=== PATIENT | male | born 1995 | race Caucasian/White ===

== ENCOUNTER 2016-07-20 09:30 | Emergency (ER) | payer MEDICAID ==
[2016-07-20] MEDS ORDERED: NS 1,000 ML IV ONE ×2 (10:08→10:25)
[2016-07-20] MEDS ORDERED: PROMETHAZINE HCL 25 MG/ML INJ IVP ONE (10:25)
--- NOTE | 2016-07-20 10:32 | EDPHY ---
H & P Time Seen by Provider: 07/20/16 10:04 HPI/ROS: CHIEF COMPLAINT: Nausea vomiting HISTORY OF PRESENT ILLNESS: Patient is a [id number] male who has recurrent episodes of nausea and vomiting. These occur every 6-9 months. He has had significant episodes of vomiting the past that caused a pneumothorax. Patient' s symptoms started 24 hours ago. He has had numerous episodes of nonbloody emesis. He has mild diffuse abdominal discomfort. He also reports nonbloody diarrhea. No fevers or chills. No recent travel or antibiotic use. REVIEW OF SYSTEMS: My complete review of systems is negative except as mentioned in the HPI. Past Medical/Surgical History: Recurrent abdominal pain Past surgical history: Negative Social history: The patient denies drug use. No alcohol use. Smoking Status: Current every day smoker Physical Exam: Vitals noted GENERAL: No acute distress, alert. HEENT: Eyes normal to inspection, normal pharynx, no signs of dehydration. NECK: No thyromegaly, no lymphadenopathy, supple. RESPIRATORY: Clear to auscultation bilaterally, no rales, rhonchi or wheezing. CVS: Regular rate and rhythm, no rubs, murmurs, or gallops. ABDOMEN: Soft, nontender, nondistended, no organomegaly. Benign BACK: Normal to inspection, no CVA tenderness. SKIN: Normal color, no rash, warm, dry. Mildly pale. EXTREMITIES: No pedal edema, no calf tenderness, no Homans sign or cords, no joint swelling. NEURO/PSYCH: Alert and oriented, normal mood and affect Constitutional: Initial Vital Signs Temperature (C) 36.5 C 07/20/16 09:31 Heart Rate 88 07/20/16 09:31 Respiratory Rate 18 07/20/16 09:31 Blood Pressure 144/95 H 07/20/16 09:31 O2 Sat (%) 98 07/20/16 09:31 O2 Delivery Mode Room Air Allergies/Adverse Reactions: No Known Allergies Allergy (Unverified 07/20/16 09:31) Home Medications: Medication Instructions Recorded Adderall 10 MG (*) 07/20/16 Gabapentin 07/20/16 Lexapro 07/20/16 Ondansetron Odt [Zofran Odt 4 mg 4 mg PO Q4PRN PRN #7 tab 07/20/16 (*)] Medical Decision Making ED Course/Re-evaluation: The an IV was placed. The patient was given normal saline 1 L IV for hydration. Patient was given Phenergan 12.5 mg IV. Laboratory studies were sent. I discussed the plan with the patient. I answered all his questions. I reviewed the patient's laboratory studies. [place] [id number]. The patient has been vomiting for the past 24 hours. On recheck the patient still had mild abdominal cramping and nausea. He was given Haldol 5 mg IV. I rechecked the patient on numerous occasions while here. 12 10: On recheck the patient was feeling better. He is resting comfortably in the bed. Abdomen was soft, nontender nondistended. I gave patient warnings prior to leaving. He was given follow-up information with forepart laster. He will return with worsening symptoms. He is given a prescription of Zofran upon discharge. Differential Diagnosis: My differential includes but is not limited to electrolyte abnormality, sugar abnormality, dehydration, viral illness, small-bowel obstruction, perforation, pancreatitis, cholecystitis, appendicitis - Data Points Laboratory Results: Laboratory Results 07/20/16 10:00 07/20/16 10:00 07/20/16 07/20/16 10:00 10:00 WBC 15.78 10^3/uL H 10^3/uL (3.80-9.50) RBC 5.54 10^6/uL 10^6/uL (4.40-6.38) Hgb 16.3 g/dL g/dL (13.7-17.5) Hct 48.0 % % (40.0-51.0) MCV 86.6 fL fL (81.5-99.8) MCH 29.4 pg pg (27.9-34.1) MCHC 34.0 g/dL g/dL (32.4-36.7) RDW 13.4 % % (11.5-15.2) Plt Count 356 10^3/uL 10^3/uL (150-400) MPV 9.0 fL fL (8.7-11.7) Neut % (Auto) 91.5 % H % (39.3-74.2) Lymph % (Auto) 6.0 % L % (15.0-45.0) Ware % (Auto) 2.0 % L % (4.5-13.0) Eos % (Auto) 0.0 % L % (0.6-7.6) Baso % (Auto) 0.1 % L % (0.3-1.7) Nucleat RBC Rel Count 0.0 % % (0.0-0.2) Absolute Neuts (auto) 14.45 10^3/uL H 10^3/uL (1.70-6.50) Absolute Lymphs (auto) 0.94 10^3/uL L 10^3/uL (1.00-3.00) Absolute Monos (auto) 0.32 10^3/uL 10^3/uL (0.30-0.80) Absolute Eos (auto) 0.00 10^3/uL L 10^3/uL (0.03-0.40) Absolute Basos (auto) 0.01 10^3/uL L 10^3/uL (0.02-0.10) Absolute Nucleated RBC 0.00 10^3/uL 10^3/uL (0-0.01) Immature Gran % 0.4 % % (0.0-1.1) Immature Gran # 0.06 10^3/uL 10^3/uL (0.00-0.10) Sodium 144 mEq/L mEq/L (134-144) Potassium 4.2 mEq/L mEq/L (3.5-5.2) Chloride 99 mEq/L mEq/L (97-110) Carbon Dioxide 23 mEq/l mEq/l (22-31) Anion Gap 22 mEq/L H mEq/L (8-16) BUN 18 mg/dL mg/dL (7-23) Creatinine 0.8 mg/dL mg/dL (0.7-1.3) Estimated GFR > 60 Glucose 122 mg/dL H mg/dL (70-100) Calcium 10.6 mg/dL H mg/dL (8.5-10.4) Total Bilirubin 1.0 mg/dL mg/dL (0.1-1.4) Conjugated Bilirubin 0.5 mg/dL mg/dL (0.0-0.5) Unconjugated Bilirubin 0.5 mg/dL mg/dL (0.0-1.1) AST 45 IU/L IU/L (17-59) ALT 42 IU/L IU/L (21-72) Alkaline Phosphatase 80 IU/L IU/L (38-126) Total Protein 8.9 g/dL H g/dL (6.3-8.2) Albumin 5.6 g/dL H g/dL (3.5-5.0) Lipase 34.0 IU/L IU/L (23-300) Medications Given: Discontinued Medications Haloperidol Lactate (Haldol Injection) 5 mg IVP EDNOW ONE Stop: 07/20/16 11:12 Last Admin: 07/20/16 11:17 Dose: 5 mg Sodium Chloride (Ns) 1,000 mls @ 0 mls/hr IV ONCE ONE PRN Reason: Wide Open Stop: 07/20/16 10:09 Last Admin: 07/20/16 10:09 Dose: 1,000 mls Sodium Chloride (Ns) 1,000 mls @ 0 mls/hr IV ONCE ONE; Wide Open PRN Reason: Protocol Stop: 07/20/16 10:26 Last Admin: 07/20/16 10:49 Dose: 1,000 mls Promethazine HCl (Phenergan) 12.5 mg IVP EDNOW ONE Stop: 07/20/16 10:26 Last Admin: 07/20/16 10:50 Dose: 12.5 mg Departure - Departure Disposition: Home, Routine, Self-Care Clinical Impression: Abdominal pain Qualifiers: Abdominal location: generalized Qualified Code(s): R10.84 - Generalized abdominal pain Vomiting Qualifiers: Vomiting type: unspecified Vomiting Intractability: non-intractable Nausea presence: with nausea Qualified Code(s): R11.2 - Nausea with vomiting, unspecified Condition: Good Instructions: Acute Nausea and Vomiting (ED) Additional Instructions: Return with increasing pain, fever, persistent vomiting or any other concerns. Referrals: John Gutierres DO [Primary Care Provider] - 2-3 days, call for appt. Chele Millard MD [[facility] [place] Primary Care Provider] - As per Instructions Prescriptions: Ondansetron Odt [Zofran Odt 4 mg (*)] 4 mg PO Q4PRN PRN #7 tab PRN Reason: For Nausea & Vomiting
[2016-07-20 10:34] LABS: % IMMATURE GRANULYOCYTES 0.4 % (0.0-1.1); ABSOLUTE IMMATURE GRANULOCYTES 0.06 10^3/uL (0.00-0.10); ADD DIFF? NO; ADD MORPH? NO; ADD SCAN? NO; ATYPICAL LYMPHOCYTE FLAG 0 (0-99); FRAGMENT RBC FLAG 0 (0-99); HEMOGLOBIN 16.3 g/dL (13.7-17.5); LEFT SHIFT FLG 0 (0-99); LIPEMIA HEMOLYSIS FLAG 90 (0-99); MEAN CELL HEMOGLOBIN 29.4 pg (27.9-34.1); MEAN CELL VOLUME 86.6 fL (81.5-99.8); PLATELET CLUMPS FLAG 0 (0-99); PLATELET COUNT 356 10^3/uL (150-400); RED BLOOD CELL COUNT 5.54 10^6/uL (4.40-6.38); RED CELL DISTRIBUTION WIDTH 13.4 % (11.5-15.2)
[2016-07-20 10:40] LABS: ALANINE AMINOTRANSFERASE 42 IU/L (21-72); ALBUMIN 5.6 g/dL (3.5-5.0); ALKALINE PHOSPHATASE 80 IU/L (38-126); ANION GAP 22 mEq/L (8-16); ASPARTATE AMINOTRANSFERASE 45 IU/L (17-59); BILIRUBIN-CONJUGATED 0.5 mg/dL (0.0-0.5); BILIRUBIN-UNCONJUGATED 0.5 mg/dL (0.0-1.1); CALCIUM 10.6 mg/dL (8.5-10.4); CARBON DIOXIDE 23 mEq/l (22-31); CHLORIDE 99 mEq/L (97-110); CREATININE 0.8 mg/dL (0.7-1.3); GLOMERULAR FILTRATION RATE > 60; GLUCOSE 122 mg/dL (70-100); POTASSIUM 4.2 mEq/L (3.5-5.2); SODIUM 144 mEq/L (134-144); TOTAL PROTEIN 8.9 g/dL (6.3-8.2)
[2016-07-20 10:54] VITALS: O2SAT 97
[2016-07-20] MEDS ORDERED: HALOPERIDOL LACT 5 MG/ML INJ IVP ONE (11:11)
[2016-07-20 12:26] VITALS: BP 152/102; PULSE 90; RESP 18; TEMP 98.4
== END 2016-07-20 12:25 | disposition home or self-care (01) ==
DX: R11.2 Nausea with vomiting, unspecified (principal); R10.84 Generalized abdominal pain; F17.200 Nicotine dependence, unspecified, uncomplicated
CPT/HCPCS: 96374; J2550

== ENCOUNTER 2017-03-30 07:03 | Emergency (ER) | payer MEDICAID ==
--- NOTE | 2017-03-30 07:09 | EDPHY ---
H & P Time Seen by Provider: 03/30/17 07:08 HPI/ROS: CHIEF COMPLAINT: Acute abdominal pain and vomiting HISTORY OF PRESENT ILLNESS: The patient presents the ED with complaints of acute abdominal pain and vomiting. He has a history of cyclic vomiting syndrome. He is scheduled to see Dr. Shaw from Gastroenterology. The patient does report he is a frequent marijuana user. No one has discussed with him the linkage between THC usage and cannabis induced hyperemesis. He reports his last episode of acute abdominal pain and vomiting was several months ago. The patient has had a workup of this condition in the past. The patient reports moderate epigastric pain. He is had multiple episodes of nonbloody bilious vomiting. REVIEW OF SYSTEMS: A comprehensive 10 point review of systems is otherwise negative aside from elements mentioned in the history of present illness. Source: Patient Exam Limitations: No limitations - Medical/Surgical History Hx Asthma: No Hx Chronic Respiratory Disease: No Hx Diabetes: No Hx Cardiac Disease: No Hx Renal Disease: No Hx Cirrhosis: No Hx Alcoholism: No Hx HIV/AIDS: No Hx Splenectomy or Spleen Trauma: No Other PMH: depression. pneumo from freq vomit - Social History Smoking Status: Current every day smoker - Physical Exam Exam: General Appearance: Alert, retching Eyes: Pupils equal and round no pallor or injection ENT, Mouth: Mucous membranes moist Respiratory: There are no retractions, lungs are clear to auscultation Cardiovascular: Regular rate and rhythm Gastrointestinal: Epigastric tenderness Neurological: A&O, normal motor function, normal sensory exam, normal cranial nerves Skin: Warm and dry, no rashes Musculoskeletal: Neck is supple nontender Extremities: symmetrical, full range of motion Constitutional: Initial Vital Signs Temperature (C) 36.4 C 03/30/17 07:06 Heart Rate 100 03/30/17 07:06 Respiratory Rate 18 03/30/17 07:06 Blood Pressure 122/82 H 03/30/17 07:06 O2 Sat (%) 98 03/30/17 07:06 O2 Delivery Mode Room Air Allergies/Adverse Reactions: No Known Allergies Allergy (Unverified 07/20/16 09:31) Home Medications: Medication Instructions Recorded Adderall 10 MG (*) 07/20/16 Gabapentin 07/20/16 Lexapro 07/20/16 Ondansetron Odt [Zofran Odt 4 mg 4 mg PO Q4PRN PRN #7 tab 07/20/16 (*)] Ondansetron Odt [Zofran Odt] 4 mg PO Q4PRN PRN #20 tab 03/30/17 Medical Decision Making ED Course/Re-evaluation: The patient presents to the ED with an acute exacerbation of cyclic vomiting. The patient had an IV established. He received 5 mg of IV Haldol at 12.5 mg of Phenergan. The patient received 2 L of normal saline. His electrolytes were checked and found to be unremarkable. The patient is noted to have THC and his urinalysis. I re-evaluated the patient at 9:00 a.m.: His vomiting has resolved in his symptoms have improved. His abdominal examination is benign. The patient will be given a prescription for a GI cocktail. 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 The patient will be discharged from the emergency department with a prescription for Zofran. He is given customary aftercare instructions and return precautions. Differential Diagnosis: Differential diagnosis considered includes pancreatitis, dehydration, cannabis induced hyperemesis, gastritis - Data Points Laboratory Results: Laboratory Results 03/30/17 07:20 03/30/17 03/30/17 08:42 07:20 Sodium 146 mEq/L H mEq/L (135-145) Potassium 3.4 mEq/L L mEq/L (3.5-5.2) Chloride 105 mEq/L mEq/L (97-110) Carbon Dioxide 22 mEq/l mEq/l (22-31) Anion Gap 19 mEq/L H mEq/L (8-16) BUN 10 mg/dL mg/dL (7-23) Creatinine 0.9 mg/dL mg/dL (0.7-1.3) Estimated GFR > 60 Glucose 97 mg/dL mg/dL (70-100) Calcium 10.3 mg/dL mg/dL (8.5-10.4) Urine Opiates Screen NEGATIVE (NEGATIVE) Urine Barbiturates NEGATIVE (NEGATIVE) Ur Phencyclidine Scrn NEGATIVE (NEGATIVE) Ur Amphetamine Screen NEGATIVE (NEGATIVE) U Benzodiazepines Scrn NEGATIVE (NEGATIVE) Urine Cocaine Screen NEGATIVE (NEGATIVE) U Marijuana (THC) Screen NON-NEGATIVE H (NEGATIVE) Medications Given: Discontinued Medications Al Hydroxide/Mg Hydroxide (Maalox Susp) 30 ml PO ONCE ONE Stop: 03/30/17 09:36 Last Admin: 03/30/17 10:03 Dose: 30 ml Haloperidol Lactate (Haldol Injection) 5 mg IVP EDNOW ONE Stop: 03/30/17 07:20 Last Admin: 03/30/17 07:36 Dose: 5 mg Hyoscyamine Sulfate (Levsin, Hyomax-Sl) 0.25 mg PO ONCE ONE Stop: 03/30/17 09:36 Last Admin: 03/30/17 10:03 Dose: 0.25 mg Sodium Chloride (Ns) 1,000 mls @ 0 mls/hr IV EDNOW ONE; Wide Open PRN Reason: Protocol Stop: 03/30/17 07:20 Last Admin: 03/30/17 07:36 Dose: 1,000 mls Sodium Chloride (Ns) 1,000 mls @ 0 mls/hr IV EDNOW ONE; Wide Open PRN Reason: Protocol Stop: 03/30/17 07:20 Last Admin: 03/30/17 07:36 Dose: 1,000 mls Lidocaine (Lidocaine 2% Viscous) 15 ml PO ONCE ONE Stop: 03/30/17 09:36 Last Admin: 03/30/17 10:03 Dose: 15 ml Promethazine HCl (Phenergan) 12.5 mg IVP EDNOW ONE Stop: 03/30/17 07:20 Last Admin: 03/30/17 07:36 Dose: 12.5 mg Departure - Departure Disposition: Home, Routine, Self-Care Clinical Impression: Cyclic vomiting syndrome, Dehydration Condition: Good Instructions: Cyclic Vomiting Syndrome (ED) Additional Instructions: 1. I recommend complete abstinence from marijuana as you may be experiencing cannabis induced hyperemesis syndrome. You may need to abstain for several months to notice an improvement of your symptoms. 2. Zofran as needed for nausea. 3. Please follow up with Dr. Shaw as scheduled. Referrals: John Gutierres DO [Medical Doctor] - As per Instructions Prescriptions: Ondansetron Odt [Zofran Odt] 4 mg PO Q4PRN PRN #20 tab PRN Reason: For Nausea
[2017-03-30 07:10] VITALS: RESP 18
[2017-03-30] MEDS ORDERED: HALOPERIDOL LACT 5 MG/ML INJ IVP ONE (07:19)
[2017-03-30] MEDS ORDERED: NS 1,000 ML IV ONE ×2 (07:19)
[2017-03-30] MEDS ORDERED: PROMETHAZINE HCL 25 MG/ML INJ IVP ONE (07:19)
[2017-03-30] MEDS ORDERED: LIDOCAINE 2% VISCOUS 15 ML UDCUP PO ONE (09:35)
[2017-03-30] MEDS ORDERED: MAG HYDROX/AL HYDROX/SIMETH 30 ML UDCUP PO ONE (09:35)
[2017-03-30] MEDS ORDERED: HYOSCYAMINE SULFATE 0.125 MG TAB PO ONE (09:35)
[2017-03-30 10:46] VITALS: BP 150/109; PULSE 63; TEMP 98.2; O2SAT 99
== END 2017-03-30 10:46 | disposition home or self-care (01) ==
DX: G43.A0 Cyclical vomiting, in migraine, not intractable (principal); E86.0 Dehydration; E86.9 Volume depletion, unspecified; F17.200 Nicotine dependence, unspecified, uncomplicated
CPT/HCPCS: 80305; 96374; J1630; J2550